=== PATIENT | male | born 1975 | race Caucasian/White ===

== ENCOUNTER → 2018-09-14 09:40 | Outpatient (CLI) | payer OTHER, SELFPAY ==
[2017-09-28 09:22] VITALS: BMI 26.3
[2018-09-14 12:22] LABS: Anion Gap 6 (5-15); BUN 14 mg/dL (7-18); BUN/Creat Ratio 13.9 RATIO (10-20); Calcium,Total 8.4 mg/dL (8.5-10.1); Chloride 106 mmol/L (98-107); Cholesterol 198 mg/dL (200); Creatinine, Serum 1.01 mg/dL (0.70-1.30); EST Glomerular Filtration Rate 86 mL/min (>60); Est Glom Filt Rate - Afr Amer 104 mL/min (>60); Glucose 94 mg/dL (74-106); High Density Lipoprotein 46 mg/dL; Potassium 4.3 mmol/L (3.5-5.1); Sodium Level 143 mmol/L (136-145); Thyroid Stim Hormone (TSH) 1.58 uIU/mL (0.358-3.74); Triglycerides 64 mg/dL; Very Low Density Lipoprotein 13 mg/dL (5-40)
[2018-09-14 13:27] LABS: Vitamin D,25 Hydroxy 16.5 ng/mL (29.95-100.01)
== END ==
PROVIDERS: Visit Provider Family Medicine
DX: Z00.00 Encounter for general adult medical examination without abnormal findings (principal)
CPT/HCPCS: 36415; 80048; 80061; 82306; 84403; 84443

== ENCOUNTER → 2021-04-19 08:09 | Outpatient (CLI) | payer OTHER, SELFPAY ==
[2021-04-19 11:39] LABS: Anion Gap 8 (5-15); BUN 9 mg/dL (7-18); BUN/Creat Ratio 8.8 RATIO (10-20); Calcium,Total 8.6 mg/dL (8.5-10.1); Chloride 105 mmol/L (98-107); Cholesterol 199 mg/dL (200); Creatinine, Serum 1.02 mg/dL (0.70-1.30); EST Glomerular Filtration Rate 84 mL/min (>60); Est Glom Filt Rate - Afr Amer 102 mL/min (>60); Glucose 86 mg/dL (74-106); High Density Lipoprotein 53 mg/dL; Sodium Level 138 mmol/L (136-145); Triglycerides 57 mg/dL; Very Low Density Lipoprotein 11 mg/dL (5-40)
== END ==
PROVIDERS: PCP Family Medicine; Referring Provider Family Medicine; Visit Provider Family Medicine
DX: Z00.00 Encounter for general adult medical examination without abnormal findings (principal)
CPT/HCPCS: 36415; 80048; 80061; 82306

== ENCOUNTER → 2022-11-25 | Outpatient (CLI) | payer OTHER, SELFPAY ==
[2022-11-25 12:55] LABS: Anion Gap 4 (5-15); BUN 11 mg/dL (7-18); BUN/Creat Ratio 11.1 RATIO (10-20); Chloride 106 mmol/L (98-107); Cholesterol 219 mg/dL (200); Creatinine, Serum 0.99 mg/dL (0.70-1.30); EST Glomerular Filtration Rate 86 mL/min (>60); Est Glom Filt Rate - Afr Amer 104 mL/min (>60); Glucose 98 mg/dL (74-106); High Density Lipoprotein 47 mg/dL; Potassium 4.1 mmol/L (3.5-5.1); Sodium Level 138 mmol/L (136-145); Triglycerides 76 mg/dL; Very Low Density Lipoprotein 15 mg/dL (5-40)
[2022-11-25 12:56] LABS: Vitamin D,25 Hydroxy 57.2 ng/mL
== END | disposition home or self-care (01) ==
LOC: MFPLAB 09:29
PROVIDERS: PCP Family Medicine; Visit Provider Family Medicine
DX: Z00.00 Encounter for general adult medical examination without abnormal findings (principal); E55.9 Vitamin D deficiency, unspecified
CPT/HCPCS: 36415; 80048; 80061; 82306

== ENCOUNTER 2023-11-26 07:10 | Day surgery (SDC) | payer OTHER, SELFPAY ==
--- NOTE | 2023-11-26 | HERN_PTH ---
PATIENT: JERSON MCALLISTER LOC: [facility] [place] U#:[id number] AGE/SX: 48/M ROOM: RE11/26/[address]: Dr. Jerson Shah MD : 1975 BED: DIS: 11/26/2023 SPEC #: [id number] RECD: 11/26/23 09:25 STATUS: JOEY ROXANNA #: [id number] ESCOBAR: 11/26/23 00:[address]: Jerson Shah DEPT: SURGICAL PATHOLOGY RECD BY: Darius Huang ENTERED: 11/26/23 10:44 SP TYPE: Hernia OTHR DR: Dr. Jethro Beauchamp MD Tissues: HERNIA Procedures: Surgery Specimen Level II HEADER OPERATION: Hernia, open umbilical repair PRE-OP DIAGNOSIS: Small umbilical hernia TISSUE SUBMITTED: Fat and hernia sac MICROSCOPIC DIAGNOSIS Fat and hernia sac; Fragments of fibroadipose and fibroconnective tissue, consistent with hernia sac. SJ/mr 11/27/2023 MICROSCOPIC DESCRIPTION Slides are reviewed. GROSS DESCRIPTION Received in fixative is one container labeled with the patient's name and designated Fat and hernia sac. The specimen consists of three irregular fragments of caal-yellow fatty tissue raging in size from 1.0 to 2.2cm. No mass lesion is identified. Mixing Machine Attendant sections are submitted in one cassette. AM/ 11/26/2023 TC:5 CPT: 84633
--- NOTE | 2023-11-26 07:19 | EKG12_ITS ---
Test Reason : pre op Blood Pressure : / mmHG Vent. Rate : 055 BPM Atrial Rate : 055 BPM P-R Int : 166 ms QRS Dur : 098 ms QT Int : 410 ms P-R-T Axes : 015 006 027 degrees QTc Int : 392 ms Sinus bradycardia Otherwise normal ECG No previous ECGs available Confirmed by MANDEEP REYNOLDS, GLORIA ([id number]), news assignment editor DYAN PARRISH ([id number]) on 11/26/2023 1:21:25 PM Referred By: Jethro Beauchamp Confirmed By:GLORIA KAUFMAN MD
[2023-11-26 07:46] VITALS: BP 121/79; PULSE 57; RESP 16; TEMP 36.6; O2SAT 98; BMI 25.9
--- NOTE | 2023-11-26 08:03 | HP.PCM_ITS ---
History and Physical Date of Admission: 11/26/23 Intake Vital Signs 10/29/2408:29 Height 5 ft 6 in Weight: 169 lb BMI 27.2 BP 117/86 H Blood Pressure Location Rt brachial Position Sitting Respiration 18 Pulse 78 Pulse Source Monitor Temp 97.9 F Temp Source Temporal Pulse Oximetry (%) 96 Oxygen Delivery Method room air Intake Visit Reasons: Hernia Chief Complaint: umbilical hernia Efficiency Analyst Required: No Is patient in pain?: No Allergies Penicillins Allergy (Verified 10/29/23 09:30) Hivestetracycline Allergy (Verified 10/29/23 09:30) Hives Medications escitalopram oxalate 10 mg tablet (Lexapro) 10 mg PO QDAY 09/28/17 [History Confirmed 10/29/23] multivitamin 1 tab PO QAM 09/28/17 [History Confirmed 10/29/23] PFSH Medical History (Updated 10/29/23 @ 09:28 by Patricia Storm LPN) Earache symptoms in left ear Surgical History (Updated 10/29/23 @ 09:28 by Patricia Storm LPN) Lutz teeth removed Family History (Updated 10/29/23 @ 09:29 by Patricia Storm LPN) Father Heart diseaseMother Breast cancer Social History (Updated 10/29/23 @ 09:29 by Patricia Storm LPN) Smoking Status: Never smoker alcohol intake: current substance use type: does not use HPI HPI HPI: Patient is a 48-year-old male here with umbilical hernia. He says has been there for a couple years. He says it is not growing. He says he is concerned that he is worried he is getting get bigger. ROS General General: No weight change, appetite, fatigue, colon cancer, breast cancer or weakness Endo Endocrine: No thyroid disease, diabetes mellitus, thyroid cancer, Hair loss, heat intolerance or cold intolerance Skin Skin: No rash or changing moles Musc Musculoskeletal: No back problems, arthritis, rheumatoid arthritis, gout or joint pain Cardio Cardiovascular: No murmur, pacemaker, heart disease, atrial fibrillation, high blood pressure, heart attack, heart stent, palpitations, shortness of breat with exertion or chest pain Psych Psychiatric: Yes anxiety; No depression or hearing voices Resp Respiratory: No shortness of breath, No sleep apnea, No cough, No COPD, No asthma, No emphysema and No wheezing Gastro Gastrointestinal: No abdominal pain, No nausea or vomiting, No diarrhea, No constipation, No blood in stool, No acid reflux, No hemorrhoids, No ulcers, No gallbladder problem and No black,tarry stools Zackary Hematologic: No blood thinners, No blood disorders, No bleeding, No anemia and No blood clots Neuro Neurologic: No numbness and No weakness Exam Const General: cooperative Orientation: alert and oriented x3 HENMT Head: normal to inspection Neck Neck: normal visual inspection and full ROM Chest Chest palpation & inspection: normal inspection of the chest Resp Effort & Inspection: normal respiratory effort Auscultation: clear to auscultation bilaterally Cardio Rate: regular rate Rhythm: regular rhythm GI Inspection: non-distended Palpation: soft and nontender Skin General: no rashes or lesions noted Neuro General: patient alert and patient oriented x3 Extrem General: full ROM Psych Appearance: grossly normal Mental Status: mental status grossly normal Assessment and Plan Assessment and Plan (1) Hernia: Plan: Patient is a small umbilical hernia. I discussed repair with suture. The patient is trying to avoid mesh placement. It is small enough that I believe suture repair would be appropriate. I discussed the risks of the procedure such as bleeding, infection, injury to underlying organs. Patient understands the risks and is willing to proceed. Nayan Shah MD Pager: [facility] [address] [place] [address], [address] [place] [address] Office: I have examined the patient and the H&P has been reviewed. There are no clinical changes since date of exam.
[2023-11-26] MEDS: Lactated Ringers 1,000 ML 15 ML IV (08:05)
[2023-11-26] MEDS: Clindamycin 900 MG/50 ML BAG 75 MG IV (08:19)
[2023-11-26] MEDS: Bupivacaine Mpf 0.5% 30 ML VIAL (08:31)
[2023-11-26] MEDS: Lidocaine 1% (30 ml sdv) 30 ML Vial (08:31)
[2023-11-26 08:55] VITALS: BP 113/77; BP 121/79; PULSE 61; RESP 16; TEMP 36.3; O2SAT 95
[2023-11-26 09:00] VITALS: BP 117/84; BP 121/79; PULSE 67; RESP 16; O2SAT 97
[2023-11-26 09:05] VITALS: BP 111/78; BP 121/79; PULSE 62; RESP 16; O2SAT 97
[2023-11-26 09:10] VITALS: BP 121/79; BP 97/84; PULSE 66; RESP 16; TEMP 36.5; O2SAT 99
--- NOTE | 2023-11-26 09:16 | OP.PCM_ITS ---
Report of Operation Date of Procedure: 11/26/23 Pre-Operative Diagnosis: Umbilical Hernia less than 3 cm Post-Operative Diagnosis: Same Surgery/Procedure Performed:: Umbilical hernia repair less than 3 cm Type of Anesthesia: Local MAC Specimen's removed: Hernia sac and contents Estimated Blood Loss (mL): 5 Description of Procedure: Patient was brought back to the operating room and MAC anesthesia was induced. The abdomen was prepped and draped in usual sterile fashion. A curvilinear incision was marked superior to the umbilicus and injected with local anesthetic . Scalpel was used to make an incision and the hemostasis was obtained using electrocautery. The hernia sac was dissected free from surrounding adhesions and it was removed. Hernia sac and fat contained in the hernia were sent for pathology. The hernia defect was very small. It was less than a centimeter. The fascia was reapproximated with interrupted 0 Nurolon sutures. The subcutaneous tissue was irrigated and suctioned and had good hemostasis. The skin was reapproximated using interrupted 3-0 Vicryl sutures. Steri-Strips and bandages were applied. Patient tolerated the procedure well brought to PACU in stable condition. Grafts/Implants Used: No mesh utilized per patient request and hernia defect less than 1 cm Admit VTE Documentation VTE Mechan Device Prophylaxis: SCD's
--- NOTE | 2023-11-26 09:18 | EX.PCM.DISCH ---
Discharge Instructions Procedure Hernia Diet Discharge Diet: Light diet - advance as tolerated Activity Discharge Activity: May Not Drive (for 2-3 days or while taking narcotic pain meds.) and May Shower (with the bandage in place 1-2 days after surgery.) Lifting Restrictions: 20 pounds for 2 weeks. Additional Activity Instructions:: Climbing stairs is fine, walking is encouraged. Sitting in bed may be uncomfortable. Sitting up using your lateral muscles (sitting up sideways) is usually more comfortable. Do not drive, work heavy equipment of sign legal documents for 24 hours. Pain medications may cause nausea, you should typically eat light foods as you take your pain medications. Alternate ibuprofen and Tylenol for pain, oxycodone for breakthrough pain. Pain medications may also cause constipation. If you have difficulty with this, discuss with your doctor. Dressing / Incision Call your doctor if your incision/area has: Continuous Slow Oozing, Sudden Increased Bleeding, Increased Pain/ Swelling, Increased Redness and Foul Smelling Discharge Call your doctor if you observe: Fever of 101 or Higher Suture Line Care: Avoid Pulling/Pushing and Avoid Pinching/Bending Remove Dressing in: 2 days (Remove clear bandages in 2 days, remove Steri-Strips in 7 to 10 days.) Cleanse incision/area with: Soap & Water Follow Up Care Please Follow Up With: Nayan Shah MD When: Please call to schedule 2 week follow up appointment. [phone] Test Results: Test results from this visit will be discussed in further detail at your follow-up appointment, if applicable. Discharge Plan Admission Attending Provider: Nayan Shah Primary Care Provider: Jethro Beauchamp Discharge Orders/Prescriptions Prescriptions: New oxycodone 5 mg Tablet 5 - 10 mg PO Q4H PRN PRN (Reason: MODSEVPAIN) 5 Days Qty: 15 0RF No Action escitalopram oxalate [Lexapro] 10 mg tablet 10 mg PO QDAY multivitamin tablet 1 tab PO QAM cholecalciferol (vitamin D3) [Vitamin D3] 25 mcg (1,000 unit) capsule 25 mcg PO DAILY Referrals / Follow Up: Jethro Beauchamp MD [Primary Care Provider] - Disposition Disposition (needs filled in before D/C Order can be placed): Home, Self Care
[2023-11-26] MEDS: Acetaminophen 325 MG Tablet 650 MG PO (09:41)
[2023-11-26 10:32] VITALS: BP 110/90; BP 121/79; PULSE 55; RESP 16; TEMP 36.3; O2SAT 99
== END 2023-11-26 10:35 | disposition home or self-care (01) ==
LOC: SDC 07:10 → AC 07:12
PROVIDERS: PCP Family Medicine; Referring Provider Family Medicine; Visit Provider Surgery
PROC: (CPT 49591; principal; 2023-11-26 08:25)
DX: K42.9 Umbilical hernia without obstruction or gangrene (principal); F41.9 Anxiety disorder, unspecified; Z79.899 Other long term (current) drug therapy
CPT/HCPCS: 49591; 00750; 88302; 93005; J7120; J2405

== ENCOUNTER → 2023-12-04 | Outpatient (CLI) | payer OTHER, SELFPAY ==
[2023-12-04 10:27] LABS: Anion Gap 6 (5-15); BUN 16 mg/dL (7-18); Calcium,Total 9.2 mg/dL (8.5-10.1); Chloride 108 mmol/L (98-107); Cholesterol 250 mg/dL (200); EST Glomerular Filtration Rate 85 mL/min (>60); Est Glom Filt Rate - Afr Amer 103 mL/min (>60); Glucose 97 mg/dL (74-106); High Density Lipoprotein 49 mg/dL; Potassium 4.6 mmol/L (3.5-5.1); Sodium Level 139 mmol/L (136-145); Thyroid Stim Hormone (TSH) 1.66 uIU/mL (0.358-3.74); Triglycerides 80 mg/dL; Very Low Density Lipoprotein 16 mg/dL (5-40)
== END | disposition home or self-care (01) ==
LOC: MFPLAB 08:55
PROVIDERS: PCP Family Medicine; Visit Provider Family Medicine
DX: Z00.00 Encounter for general adult medical examination without abnormal findings (principal)
CPT/HCPCS: 36415; 80048; 80061; 84403; 84443

== ENCOUNTER → 2024-12-10 | Outpatient (CLI) | payer OTHER, SELFPAY ==
[2024-12-10 10:58] LABS: Anion Gap 12 (5-15); BUN 14 mg/dL (4-19); BUN/Creat Ratio 14.1 RATIO (10-20); Calcium,Total 8.8 mg/dL (7.6-11.0); Chloride 104 mmol/L (98-108); Cholesterol 215 mg/dL (<=200); Creatinine, Serum 0.98 mg/dL (0.70-1.20); EST Glomerular Filtration Rate 95 (>60); Glucose 94 mg/dL (70-99); High Density Lipoprotein 49 mg/dL; Low Density Lipoprotein Calc. 154 mg/dL; Potassium 4.5 mmol/L (3.3-5.1); Sodium Level 137 mmol/L (133-145); Triglycerides 63 mg/dL; Very Low Density Lipoprotein 13 mg/dL (5-40); cholesterol:hdl ratio screen 4.43
== END | disposition home or self-care (01) ==
LOC: MFPLAB 08:00
PROVIDERS: PCP Family Medicine; Referring Provider Family Medicine; Visit Provider Family Medicine
DX: Z00.00 Encounter for general adult medical examination without abnormal findings (principal)
CPT/HCPCS: 36415; 80048; 80061; 84403; 84443